=== PATIENT | female | born 1965 | race Caucasian/White ===

== ENCOUNTER 2021-03-22 04:29 | Emergency (ER) | payer OTHER ==
[~2021-03-22] VITALS: Ht 160 cm; Wt 54.0 kg
[2021-03-22 04:35] VITALS: BP 130/84
--- NOTE | 2021-03-22 04:35 | NUR ---
PT AMBULATED TO BED 12.
--- NOTE | 2021-03-22 04:40 | NUR ---
55 Y/O FEMALE BROUGHT INTO THE ED BY DAUGHTER. PRESENTED WITH ALTERED LOC. +DIZINESS +LEFT SIDED WEAKNESS +CONFUSION. DAUGHTER STATED PT HAD SLURRED SPEECH PRIOR TO COMING TO ED, BUT HAS IMPROVED TO NORMAL SINCE ARRIVAL. AAOX4. PMH: PACEMAKER, HYPOTENSION, PRE-DIABETIC NKA
--- NOTE | 2021-03-22 05:15 | NUR ---
PT RETURNED FROM CT SCAN VIA WHEEL CHAIR.
--- NOTE | 2021-03-22 05:40 | NUR ---
PT AMBULATED TO BATHROOM FOR UA ASSISTED BY DAUGHTER.
--- NOTE | 2021-03-22 06:30 | NUR ---
PT VSS, LAYING IN BED, SAFETY MEASURES IN PLACE. WILL CONTINUE TO MONITOR.
[2021-03-22 06:37] LABS: BASOPHILS % (AUTO) 0.5 % (0.0-2.0); EOSINOPHILS # (AUTO) 0.1 K/uL (0-0.4); EOSINOPHILS % (AUTO) 0.7 % (0.0-4.0); HEMATOCRIT 41.3 % (36-48); HEMOGLOBIN 13.7 g/dL (12.0-16.0); LYMPHOCYTES # (AUTO) 1.5 K/uL (2.5-16.5); LYMPHOCYTES % (AUTO) 15.2 % (20.5-51.1); MEAN CORPUSCULAR HEMOGLOBIN 31 pg (27-31); MEAN CORPUSCULAR HGB CONC 33 g/dL (33-37); MEAN CORPUSCULAR VOLUME 92.6 fL (80-94); MONOCYTES # (AUTO) 0.6 K/uL (0.8-1.0); MONOCYTES % (AUTO) 6.5 % (1.7-9.3); NEUTROPHILS # (AUTO) 7.5 K/uL (1.8-7.7); NEUTROPHILS % (AUTO) 77.1 % (42.2-75.2); PLATELET COUNT (AUTO) 162 K/uL (140-450); RED BLOOD CELL COUNT(AUTO) 4.47 MIL/uL (4.20-5.40); RED CELL DISTRIBUTION WIDTH 13.5 % (11.6-13.7); WHITE BLOOD COUNT (AUTO) 9.7 K/uL (4.8-10.8)
[2021-03-22] MEDS ORDERED: ASPIRIN 325 MG TAB PO ONE (06:40)
--- NOTE | 2021-03-22 06:50 | NUR ---
COURTNEY COLLECTED VIA NARES AND SENT TO LAB.
[2021-03-22 06:54] LABS: ALBUMIN 3.8 g/dL (3.4-5.0); ANION GAP 12.9 (8-16); CARBON DIOXIDE 26.4 mmol/L (21-32); CREATININE 0.8 mg/dL (0.6-1.3); POTASSIUM 4.3 mmol/L (3.5-5.1); TOTAL BILIRUBIN 0.5 mg/dL (0.0-1.0)
--- NOTE | 2021-03-22 07:11 | NUR ---
Pt report given to TAMIKA MCKEON. Transfer of care at this time.
--- NOTE | 2021-03-22 07:11 | NUR ---
REPORT RECEIVED FROM RADHA MCKEON FOR CONTINUITY OF CARE
[2021-03-22 07:23] LABS: PROTHROMBIN TIME 9.9 secs (10.8-13.4)
--- NOTE | 2021-03-22 07:40 | NUR ---
Patient to be transferred to [facility] ER. Is being transferred due to HIGHER LEVEL OF CARE. Receiving facility has accepting physician and available space. ER physician has signed transfer form. Patient or responsible libertarian has agreed to transfer and signed form. Patient belongings inventoried and will be sent with patient. Copy of nursing notes, lab reports, EKG, Physicians Orders and X-rays to be sent with patient. Report called to ASH MCKEON at receiving facility. [facility] ambulance service has been called for transfer. ETA is 0830.
[2021-03-22 07:59] LABS: APPEARANCE,URINE CLEAR (CLEAR); BILIRUBIN,URINE NEGATIVE (NEGATIVE); BLOOD, URINE NEGATIVE (NEGATIVE); COLOR,URINE YELLOW (YELLOW); LEUKOCYTE ESTERASE ,URINE TRACE (NEGATIVE); NITRITE, URINE POSITIVE (NEGATIVE); UGLUCOSE NEGATIVE (NEGATIVE)
--- NOTE | 2021-03-22 08:26 | NUR ---
[facility] TRANSPORT AT BEDSIDE
[2021-03-22 08:31] VITALS: BP 133/81
--- NOTE | 2021-03-22 08:31 | NUR ---
[facility] LEFT WITH PATIENT AT THIS TIME
[2021-03-22 09:03] LABS: RBC,URINE 0-5 /HPF (0-5); WBC,URINE 0-5 /HPF (0-5)
== END 2021-03-22 08:31 | disposition short-term general hospital (02) ==
LOC: MED 04:29
DX: I63.9 Cerebral infarction, unspecified (principal); Z20.822 Contact with and (suspected) exposure to COVID-19; M79.602 Pain in left arm; Z95.0 Presence of cardiac pacemaker
CPT/HCPCS: 36415; 70450; 70496; 70498; 71045; 80053; 81001; 82948; 84484; 85025; 85610; 85730; 86886; 86900; 86901; 87086; 87426; 93005; 99291; Q9967